=== PATIENT | female | born 1995 | race Caucasian/White ===

== ENCOUNTER 2018-01-17 20:33 | Inpatient (IN) | payer OTHER ==
[~2018-01-17] VITALS: Ht 165.1 cm; Wt 89.8 kg
[2018-01-17] MEDS ORDERED: LACTATED RINGER'S 1000 ML INJ 1,000 ML IV PRN (21:25)
--- NOTE | 2018-01-17 21:25 | HHI.HP ---
HPI Chief Complaint Water broke Date Seen: Jan 17, 2018 Time Seen: 21:21 Travel History International Travel<30 Days: No Contact w/Intl Traveler<30Days: No Known Affected Area: No History of Present Illness HPI Patient is 22-year-old white female at 37-[address] Gaviria, presents with gross spontaneous rupture the membranes, she is kosta but there is small weak contractions she barely feels, heart rate tracing is reactive Weeks Gestation: 37 Para: 0 : 1 History Social History Alcohol Use: No Tobacco Use: No Substance Abuse: No Review of Systems General / Constitutional: No: Fever, Weight Gain, Chills, Other Eyes: No: Diploplia, Blurred Vision, Visual changes, Pain, Photophobia HENT: No: Headaches, Vertigo, Lightheadedness Cardiovascular: No: Irregular Rhythm, Chest Pain or Discomfort, Palpitations, Tachycardia, Syncope, Varicosities, Edema, Cyanosis Respiratory: No: Cough, Short of Breath, Other Gastrointestinal: No: Nausea, Vomiting, Diarrhea Genitourinary: No: Decreased Urinary Output, Oliguria Musculoskeletal: No: Limited ROM, Weakness, Cramping, Edema, Pain Skin: No Rash, No Itching, No Dryness, No Lumps, No Change in Pigmentation, No Change in Nails, No Alopecia, No Lesions Neurologic: No: Weakness, Dizziness, Syncope, Focal Abnormalities, Coordination Problem, Headache, Slurred Speech, Seizures Psychiatric: No: Depression, Suicidal Ideations, Homicidal Ideation Endocrine: No: Heat Intolerance, Cold Intolerance, Polydipsia, Polyuria, Other Physical Exam Narrative GENERAL: Well-nourished, well-developed patient. SKIN: Warm and dry. HEAD: Normocephalic and atraumatic. EYES: No scleral icterus. No injection or drainage. ENT: No nasal drainage noted. Mucous membranes pink. Airway patent. NECK: Supple, trachea midline. No JVD. CARDIOVASCULAR: Regular rate and rhythm without murmurs, gallops, or rubs. RESPIRATORY: Breath sounds equal bilaterally. No accessory muscle use. BREASTS: Bilateral exam showed no masses , no retractions, no nipple discharge. ABDOMEN/GI: Abdomen soft, non-tender, bowel sounds present, no rebound, no guarding Gravid to [37-] weeks size Fundal Height: [37-] GENITOURINARY: External Genitalia: intact and normal in appearance BUS glands: [-] Cervix: [post-] Dilatation: [1-] Effacement: [70-] Station: [-1] Presentation: [-vtx] Membranes: [ ruptured] Uterine Contractions: [irreg] FHT's: Category: [-1] Baseline: [-133] Reactive: [R-] Variability: [mod-] Decels: [none-] EXTREMITIES: No cyanosis or edema. BACK: Nontender without obvious deformity. No CVA tenderness. NEUROLOGICAL: Awake and alert. Motor and sensory grossly within normal limits. Five out of 5 muscle strength in all muscle groups. Normal speech. Caprini VTE Risk Assessment Caprini VTE Risk Assessment: No/Low Risk (score <= 1) Caprini Risk Assessment Model Point Value = 1 Point Value = 2 Point Value = 3 Point Value = 5 Age 41-60 Minor surgery BMI > 25 kg/m2 Swollen legs Varicose veins or History of unexplained or recurrent spontaneous Oral contraceptives or hormone replacement Sepsis (< 1 month) Serious lung disease, including pneumonia (< 1 month) Abnormal pulmonary function Acute myocardial infarction Congestive heart failure (< 1 month) History of inflammatory bowel disease Medical patient at bed rest Age 61-74 Arthroscopic surgery Major open surgery (> 45 min) Laparoscopic surgery (> 45 min) Malignancy Confined to bed (> 72 hours) Immobilizing plaster cast Central venous access Age >= 75 History of VTE Family history of VTE Factor V Leiden Prothrombin [id number] Lupus anticoagulant Anticardiolipin antibodies Elevated serum homocysteine Heparin-induced thrombocytopenia Other congenital or acquired thrombophilia Stroke (< 1 month) Elective arthroplasty Hip, pelvis, or leg fracture Acute spinal cord injury (< 1 month) Prophylaxis Regimen Total Risk Factor Score Risk Level Prophylaxis Regimen 0-1 Low Early ambulation 2 Moderate Order ONE of the following: *Sequential Compression Device (SCD) *Heparin 5000 units SQ BID 3-4 Higher Order ONE of the following medications: *Heparin 5000 units SQ TID *Enoxaparin/Lovenox 40 mg SQ daily (WT < 150 kg, CrCl > 30 mL/min) *Enoxaparin/Lovenox 30 mg SQ daily (WT < 150 kg, CrCl > 10-29 mL/min) *Enoxaparin/Lovenox 30 mg SQ BID (WT < 150 kg, CrCl > 30 mL/min) AND/OR *Sequential Compression Device (SCD) 5 or more Highest Order ONE of the following medications: *Heparin 5000 units SQ TID (Preferred with Epidurals) *Enoxaparin/Lovenox 40 mg SQ daily (WT < 150 kg, CrCl > 30 mL/min) *Enoxaparin/Lovenox 30 mg SQ daily (WT < 150 kg, CrCl > 10-29 mL/min) *Enoxaparin/Lovenox 30 mg SQ BID (WT < 150 kg, CrCl > 30 mL/min) AND *Sequential Compression Device (SCD) Assessment/Plan Assessment and Plan Patient 22-year-old white female at 37-38 weeks presents with spontaneous ruptured membranes at term, no bleeding of and no pain. She is kosta irregularly small weak contractions that are barely noticed Plan admit augment labor as needed anticipate vaginal delivery will discuss with Dr. jack Gonzalez,Dennis Velasco II, MD Jan 17, 2018 21:25
[2018-01-17 21:30] VITALS: RESP 18
[2018-01-17] MEDS ORDERED: LIDOCAINE HCL 1% 50 ML VIAL I-DERMAL PRN (21:30)
[2018-01-17] MEDS ORDERED: OXYTOCIN 30 UNITS-500ML PREMIX 500 ML IV ONE (21:30)
[2018-01-17] MEDS ORDERED: MINERAL OIL 10 ML VIAL TOPICAL PRN (21:30)
[2018-01-17] MEDS ORDERED: LIDOCAINE HCL 1% 50 ML VIAL INFIL PRN (21:30)
[2018-01-17] MEDS ORDERED: CITRIC ACID-SODIUM CITRATE LIQ 30 ML UDC PO SCH (21:30)
[2018-01-17] MEDS ORDERED: SODIUM CHLORID 0.9% 500 ML INJ 500 ML IV PRN (21:30)
[2018-01-17] MEDS ORDERED: SODIUM CHLOR 0.9% 1000 ML INJ 1,000 ML IV PRN (21:45)
[2018-01-17] MEDS ORDERED: FERR325T18 PO (21:48)
[2018-01-17] MEDS ORDERED: PNV11TAB (21:48)
[2018-01-17 22:00] VITALS: RESP 18
[2018-01-17 22:03] LABS: BILIRUBIN, URINE NEG (NEG); BLOOD, URINE NEG (NEG); GLUCOSE,URINE NEG (NEG); HYALINE CAST, URINE 3 /lpf (RARE); KETONE, URINE NEG (NEG); MUCUS URINE FEW /lpf (OCC); NITRITE,URINE NEG (NEG); PH, URINE 5.5 (5.0-8.5); SQUAMOUS EPITHELIAL CELL URINE 2 /hpf (0-5); URINE COLOR YELLOW (YELLW/STRAW); URINE LEUKOCYTE ESTERASE TRACE (NEG)
[2018-01-17 22:06] VITALS: RESP 18
[2018-01-17] MEDS: LACTATED RINGER'S 1000 ML INJ 1,000 ML IV SCH (22:09)
[2018-01-17] MEDS ORDERED: OXYTOCIN 30 UNITS/NS 500ML PREMIX IV PRN (23:00)
[2018-01-17 23:05] VITALS: BP 137/78; PULSE 81
[2018-01-17 23:14] LABS: AUTOMATED NEUTROPHIL # 8.9 TH/MM3 (1.8-7.7); BASOPHIL % 0.3 % (0.0-2.0); EOSINOPHIL % 0.4 % (0.0-4.0); HEMATOCRIT 37.5 % (35.0-46.0); HEMOGLOBIN 12.4 GM/DL (11.6-15.3); LYMPH % 17.9 % (9.0-44.0); LYMPHOCYTE # 2.2 TH/MM3 (1.0-4.8); MEAN CELL VOLUME 82.6 FL (80.0-100.0); MEAN CORPUSCULAR HEMOGLOBIN 27.3 PG (27.0-34.0); MEAN CORPUSCULAR HGB CONC 33.1 % (32.0-36.0); MEAN PLATELET VOLUME 8.2 FL (7.0-11.0); MONO % 7.5 % (0.0-8.0); MONOCYTE # 0.9 TH/MM3 (0-0.9); NEUT % 73.9 % (16.0-70.0); PLATELET COUNT 297 TH/MM3 (150-450); RED BLOOD COUNT 4.53 MIL/MM3 (4.00-5.30); WHITE BLOOD COUNT 12.1 TH/MM3 (4.0-11.0)
[2018-01-18] VITALS (43 sets, daily range): BP systolic 109–150; BP diastolic 61–92; PULSE 92–122; RESP 15–18; TEMP 98–98.2; O2SAT 98–100
[2018-01-18] MEDS ORDERED: fentaNYL 2MCG-BUPIV 0.125% INJ 100 ML ONE (01:40)
[2018-01-18] MEDS: LACTATED RINGER'S 1000 ML INJ 1,000 ML IV SCH (05:25)
[2018-01-18] MEDS ORDERED: ONDANSETRON ODT 4 MG TAB PO PRN (06:45)
[2018-01-18] MEDS ORDERED: KETOROLAC TROMETHAMINE 30 MG/ML (IVP) VIAL IV PUSH ONE (06:45)
[2018-01-18] MEDS ORDERED: ZOLPIDEM TARTRATE 5 MG TAB PO PRN (06:45)
[2018-01-18] MEDS ORDERED: OXYTOCIN 30 UNITS-500ML PREMIX 500 ML IV SCH (06:45)
[2018-01-18] MEDS ORDERED: oxyCODONE/ACETAMINOPHEN 5 MG/325 MG TAB PO PRN ×2 (06:45)
[2018-01-18] MEDS ORDERED: SODIUM CHLORIDE 0.9% FLUSH 10 ML FLUSH IV FLUSH PRN (06:45)
[2018-01-18] MEDS ORDERED: ALUMINUM/MAGNESIUM/SIMETH 30 ML CUP PO PRN (06:45)
[2018-01-18] MEDS ORDERED: SODIUM CHLORIDE 0.9% FLUSH 10 ML FLUSH IV FLUSH SCH (09:00)
[2018-01-18] MEDS: BENZOCAINE 20% TOPICAL SPRAY 60 ML CAN TOPICAL PRN (11:14)
[2018-01-18] MEDS: ACETAMINOPHEN 325 MG TAB PO PRN ×2 (11:14→20:16)
[2018-01-18] MEDS: WITCH HAZEL 50%/GLYCERIN 12.5% 40 PAD JAR TOPICAL PRN (11:14)
--- NOTE | 2018-01-18 11:20 | MH ---
cc: TYLER LOPEZ DATE OF ADMISSION: 01/17/2018 ADMITTING DIAGNOSIS: at 38 weeks with spontaneous rupture of membranes. HISTORY OF PRESENT ILLNESS: The patient is a 22-year-old white female para 0, last menstrual period of 04/23/17, estimated date of confinement of 02/01/2018. Her course has been benign. She developed spontaneous rupture of membranes at 07:40 p.m. tonight with clear fluid and came into the OB ED for evaluation, which confirmed a copious membrane rupture. She is now admitted for delivery. PAST MEDICAL HISTORY / PAST SURGICAL HISTORY: None. MEDICATIONS: Vitamins. ALLERGIES: NONE. TRANSFUSIONS: None. SOCIAL HISTORY: She is . 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 Alcohol, tobacco and drugs: None. FAMILY HISTORY: Her family history is noncontributory. PHYSICAL EXAMINATION: GENERAL: A well-nourished well-developed white female. VITAL SIGNS: Stable. HEAD, EYES, EARS, NOSE, THROAT: Normal. CHEST: Clear. HEART: Regular rate. BREASTS: Symmetrical. ABDOMEN: Gravid. Estimated weight is about 3000 grams. PELVIC EXAM: The cervix is fingertip 70% vertex ruptured minus 1. ASSESSMENT: As above. She is now admitted for delivery. She is GBS negative. Since she has failed to develop labor, we will start Pitocin augmentation since she has failure to progress or distress, would need a delivery. The patient would like to proceed. MD DESTINEY Park/ANANYA /11:11 PM /11:10 AM
[2018-01-18] MEDS ORDERED: MEASLES, MUMPS, RUBELLA VACCINE 0.5 ML VIAL SQ ONE (16:00)
[2018-01-18] MEDS ORDERED: DIPHTH/TETANUS/ACEL PERTUSSIS (BOOSTER) 0.5 ML VIAL/PFS IM ONE (16:00)
[2018-01-18] MEDS: DOCUSATE SODIUM 50 MG/SENNA 8.6 MG TAB PO PRN (20:15)
[2018-01-18] MEDS: IBUPROFEN 800 MG TAB PO PRN (20:16)
[2018-01-19] MEDS: IBUPROFEN 800 MG TAB PO PRN ×3 (04:34→21:31)
[2018-01-19] MEDS: ACETAMINOPHEN 325 MG TAB PO PRN (04:34)
[2018-01-19 08:00] VITALS: BP 115/72; PULSE 68; RESP 18; TEMP 98.4
[2018-01-19 09:01] LABS: AUTOMATED NEUTROPHIL # 7.7 TH/MM3 (1.8-7.7); BASOPHIL % 0.4 % (0.0-2.0); EOSINOPHIL # 0.1 TH/MM3 (0-0.4); EOSINOPHIL % 0.8 % (0.0-4.0); HEMATOCRIT 31.3 % (35.0-46.0); HEMOGLOBIN 10.3 GM/DL (11.6-15.3); LYMPH % 22.1 % (9.0-44.0); LYMPHOCYTE # 2.4 TH/MM3 (1.0-4.8); MEAN CELL VOLUME 84.4 FL (80.0-100.0); MEAN CORPUSCULAR HEMOGLOBIN 27.8 PG (27.0-34.0); MEAN PLATELET VOLUME 7.9 FL (7.0-11.0); MONO % 6.4 % (0.0-8.0); MONOCYTE # 0.7 TH/MM3 (0-0.9); NEUT % 70.3 % (16.0-70.0); PLATELET COUNT 247 TH/MM3 (150-450); RED BLOOD COUNT 3.71 MIL/MM3 (4.00-5.30)
[2018-01-19 21:15] VITALS: BP 134/77; PULSE 96; RESP 18; TEMP 97.9
[2018-01-19] MEDS: DOCUSATE SODIUM 50 MG/SENNA 8.6 MG TAB PO PRN (21:31)
[2018-01-19 21:57] VITALS: BP 134/77; PULSE 96; RESP 18
[2018-01-20] MEDS: IBUPROFEN 800 MG TAB PO PRN (05:16)
[2018-01-20] MEDS: BENZOCAINE 20% TOPICAL SPRAY 60 ML CAN TOPICAL PRN ×2 (05:16→15:05)
[2018-01-20] MEDS: WITCH HAZEL 50%/GLYCERIN 12.5% 40 PAD JAR TOPICAL PRN ×2 (05:17→15:05)
[2018-01-20 08:00] VITALS: BP 128/81; PULSE 93; RESP 16; TEMP 98
--- NOTE | 2018-01-20 08:34 | HHI.DCPOC ---
Discharge Care Plan Report Symptoms to Your Doctor -Temperature above 100.5 degrees -Redness, of incision or excessive or foul smelling drainage -Unusual pain or calf pain -Increased vaginal bleeding -Painful or difficulty urinating -Feelings of extreme sadness or anxiety after 2 weeks Goals to Promote Your Health * To prevent worsening of your condition and complications * To maintain your health at the optimal level Directions to Meet Your Goals Take your medications as prescribed Follow your dietary instruction Follow activity as directed Ensure plenty of rest for recovery Drink fluids for hydration Keep your appointments as scheduled Take your immunizations and boosters as scheduled If your symptoms worsen call your PCP, if no PCP go to Urgent Care Center or Emergency Room Smoking is Dangerous to Your Health. Avoid second hand smoke Call the 24-hour crisis hotline for domestic abuse at [facility] Gaviria MD Jan 20, 2018 08:33
--- NOTE | 2018-01-21 22:28 | MD ---
cc: TYLER LOPEZ ADMISSION DATE: 01/17/2018 DISCHARGE DATE: 01/20/2018 ADMISSION DIAGNOSIS Term with spontaneous rupture of membranes HISTORY OF PRESENT ILLNESS The patient is a 22-year-old white female para 0 with an LMP of 04/27/2017, EDC of 02/01/2018. Her course was benign. Labs include Rh positive and GBS negative. She had spontaneous rupture of membranes at 07:40 p.m. on day of admission, was admitted without labor and begun on Pitocin induction. She received epidural anesthesia and progressed to a spontaneous vaginal delivery on the morning of 01/18/2016, a viable vigorous male, Apgars 9 and 9, bith weight 7 pounds even. The baby is named Rell Miranda. She was breast feeding. did well, discharged home in excellent condition on 01/20.18, advised NPV, light activity, no driving. Return to see me in 6 weeks. She is to call for abnormal pain, bleeding, temperature, signs of infection or depression. She was given instructions in breast feeding. She declined circumcision. Her blood type was positive. MD DESTINEY Park/ /8:49 AM /10:12 PM
== END 2018-01-20 15:23 | disposition home or self-care (01) | DRG 775 ==
LOC: HOBED 20:33 → H2EB 21:27 → H1EA 01-18 09:33
PROVIDERS: ADMIT Obstetrics & Gynecology; ATTEND Obstetrics & Gynecology
DX: O80 Encounter for full-term uncomplicated delivery (principal); Z37.0 Single live birth; Z3A.38 38 weeks gestation of pregnancy
CPT/HCPCS: 80307; 81001; 85025; 86850; 86900; 86901; 87641; 90707; 90715; J1885; J2590; J3010; J7120